=== PATIENT | female | born 1940 | race Caucasian/White ===

== ENCOUNTER 2019-03-28 08:13 | Inpatient (IN) | payer MEDICARE, OTHER ==
[~2019-03-28] VITALS: Ht 167.6 cm; Wt 112.2 kg
[~2019-03-28 08:13] MED LIST: ASPIRIN ADULT L81 MG; FLEXERIL OR; MOTRIN800 MG/TAB PO; PRAVACHOL10 MG OR; PRINIVIL5 MG OR; SYNTHROID OR; ULTRAM50 M1 OR
--- NOTE | 2019-03-28 08:40 | NUR ---
PATIENT TO ROOM VIA WHEELCHAIR, REPORTS PAIN 10/10 WHEN MOVING OR WEIGHT APPLIED TO LEFT ANKLE. AT BEDSIDE.
--- NOTE | 2019-03-28 08:59 | NUR ---
PATIENT TO ROOM 15 FOR HIGHER LEVEL OF CARE. REPORT GIVEN TO ANA LILIA FERMIN.
[2019-03-28 09:17] LABS: HEMATOCRIT 40.5 % (37.0-47.0); HEMOGLOBIN 12.9 g/dl (12.0-16.0); IMMATURE GRANULOCYTES 0.4 % (0.0-5.0); MEAN CORPUSCULAR HGB 26.8 pG CALC (26.0-32.0); MEAN CORPUSCULAR HGB CONC 31.9 g/L CALC (32.0-36.0); NEUT# 6.72 thou/uL (2.00-7.15); RED BLOOD COUNT 4.82 mill/uL (4.20-5.60); RED CELL DISTRI WIDTH 14.2 % (11.5-15.5)
[2019-03-28] MEDS ORDERED: LEVOTHYROXIN100 MC1 PO (09:25)
[2019-03-28] MEDS ORDERED: OMEPRAZOLE DR20 MG PO (09:26)
[2019-03-28] MEDS ORDERED: LOVASTATIN10 M1 PO (09:26)
[2019-03-28 09:30] LABS: ANION GAP 11 (6-22 (CALC)); BUN 21 mg/dL (8-23); BUN/CREATININE RATIO 27 (12-20 (CALC)); CARBON DIOXIDE 29 mmol/l (22-30); CHLORIDE 99 mmol/l (95-108); CREATININE 0.8 mg/dL (0.5-1.0); GFR > 60 ML/MIN (>=60 (CALC)); GFR FOR AFR.AMER. > 60 ML/MIN (>=60 (CALC)); POTASSIUM 3.8 mmol/l (3.5-5.1); SODIUM 135 mmol/l (137-146)
--- NOTE | 2019-03-28 09:40 | NUR ---
PT RESTING ON STRETCHER NO OBVIOUS S/S OF DSITRESS NOTED; REDNESS AND WARMTH NOTED TO LLE, MARKED WITH SKIN MARKER; PT STATES PAIN IS 10 OUT OF 10 WHEN STANDING; IV ANTIBIOTICS INFUSING AT THIS TIME; VSS; WILL CONTINUE TO MONITOR
--- NOTE | 2019-03-28 10:40 | NUR ---
PT RESTING ON STRETCHER; NO S/S OF DISTRESS NOTED; VSS; IV ANTIBIOTICS INFUSING; PT DENIES ANY NEEDS AT THIS TIME; CALL LIGHT WITHIN REACH; WILL CONTINUE TO MONITOR
--- NOTE | 2019-03-28 11:17 | NUR ---
PT RESTING ON STRETCHER; NO S/S OF DISTRESS NOTED; PT DENIES ANY NEEDS; CALL LIGHT WITHIN REACH; WILL CONTINUE TO MONITOR
--- NOTE | 2019-03-28 12:10 | NUR ---
PT UPDATED ON POC; VSS; WILL CONTINUE TO MONITOR
[2019-03-28] MEDS ORDERED: TIZANIDINE HCL2 MG PO (12:17)
[2019-03-28] MEDS ORDERED: ZESTRIL30 MG PO (12:17)
--- NOTE | 2019-03-28 12:20 | NUR ---
REPORT RECEIVED FROM Iman KIM RN.
--- NOTE | 2019-03-28 12:30 | NUR ---
Admission Note Report Given to: DAXA HUDDLESTON Transported by: Wheelchair X Stretcher Transported with: X Nurse Transporter X Patent IV O2 Recovery Manager
--- NOTE | 2019-03-28 12:40 | NUR ---
PT ARRIVED TO FLOOR AT 1230 VIA STRETCHER WITH JONO SUNG AND . PT AMBULATED TO THE BED. A&O X3. COMPLAINS OF SLIGHT TENDERNESS TO LT LEG. LT LEG WARM TO THE TOUCH. SEE CHART FOR PICTURE. VANCOMYCIN FROM THE ER IS BEING COMPLETED AT THIS TIME. ASSESSMENT COMPLETED AT THIS TIME. NO FURTHER NEEDS FROM THE PT AT THIS TIME. CALL LIGHT IN REACH. CONTINUE TO MONITOR.
--- NOTE | 2019-03-28 15:16 | NUR ---
IV LASIX GIVEN TO PT. PT TOLERATED WELL. INSTRUCTED THE PT IF SHE HAD TO GO TO THE BATHROOM TO CALL FOR ASSISTANCE.
[2019-03-28 16:15] VITALS: BP 156/77
[2019-03-28 18:50] VITALS: BP 108/70
--- NOTE | 2019-03-28 20:00 | NUR ---
PT SITTING UP IN BED, PT AT BEDSIDE. PT ALERT AND ORIENTED X 4. PT CURRENTLY BEING TREATED FOR LEFT LEG CELLUITIS, PT HAS REDNESS, SWELLING, WARMTH AND PAIN UPON TOUCH FROM LEFT KNEE EXTENDING DOWN TO LEFT FOOT. PT USES WALKER. PT INSTUCTED TO USE CALL WHITE FOR ASSISTANCE, PT UP TOLIET WITH NURSE ASSISTANCE. PEDAL PULSE +2 TO LEFT FOOT.
--- NOTE | 2019-03-29 | NUR ---
PT UP IN ROOM WATCHING T.V. PT HAS NO COMPLAINTS. PT LEFT LEG ELEVATED ON PILLOW.
[2019-03-29 04:43] VITALS: BP 106/73
[2019-03-29 05:24] LABS: ANION GAP 13 (6-22 (CALC)); BUN 23 mg/dL (8-23); BUN/CREATININE RATIO 32 (12-20 (CALC)); CARBON DIOXIDE 27 mmol/l (22-30); CHLORIDE 101 mmol/l (95-108); CREATININE 0.7 mg/dL (0.5-1.0); GFR > 60 ML/MIN (>=60 (CALC)); GFR FOR AFR.AMER. > 60 ML/MIN (>=60 (CALC)); POTASSIUM 3.4 mmol/l (3.5-5.1); SODIUM 138 mmol/l (137-146)
[2019-03-29 07:20] VITALS: BP 98/58
--- NOTE | 2019-03-29 07:20 | NUR ---
RESTING IN RECLINER WITH LEGS ELEVATED. RESP NO-LABORED. BREATH SOUNDS CLEAR TRHOUGHOUT. LEFT LEG FROM KNEE TO TOES, RED, EDEMATOUS AND WARM TO TOUCH WITH RED RAISED RASH NOTED. PERIPHERAL PULSES PALPABLE. SALINE LOCK INTACT IN RAC, SITE BENIGN. DISCUSSED PLAN OF CARE. DENIES NEEDS AT THIS TIME. CALL WHITE IN REACH.
--- NOTE | 2019-03-29 09:00 | NUR ---
E VICKIE/ANGY IN TO SEE PATIENT.
--- NOTE | 2019-03-29 11:23 | NUR ---
S: SCOTTIE EWING is a 78 F who presents with Cellulitis. She has a history of HTN, hypothyroidism. All medications in patient's chart were reviewed. O: VS: BP: 98/58 mmHg, P: 91 beats/min, RR: 18 breaths/min, T: 98.8 F W: 109 kg, HT: 66 in, Scr: 0.7 mg/dL, CrCl: 58 ml/min A: Blood culture is pending. P: Patient is on UNASYN 3 gm IV q6h. Vancomycin ordered for pharmacy to dose. Start Vancomycin 1000 mg IV Q12H. Vancomycin trough is drawn before the 4th dose on 03/31/19 at 0000. Vancomycin goal trough is between 10-15 mcg/ml. Pharmacy will follow and or advise on antibiotics use as needed.
--- NOTE | 2019-03-29 11:45 | NUR ---
PATIENT REMAINS UP IN RECLINER WITH LEGS ELEVATED. IN TO VISIT.
--- NOTE | 2019-03-29 15:50 | NUR ---
PATIENT RESTING WITHOUT COMPLAINTS. NO CHANGES TO LLE-CONTINUES WITH REDNESS, TENDERNESS AND SWELLING, WITH RED RAISED RASH. NO INCREASE FROM PREVIOUS MARKINGS OF LEADING EDGE.
[2019-03-29 17:21] VITALS: BP 133/58
[2019-03-29 17:58] LABS: URINE BILIRUBIN - DIPSTICK NEGATIVE (NEGATIVE); URINE BLOOD DIPSTICK SMALL (NEGATIVE); URINE COLOR YELLOW; URINE GLUCOSE - DIPSTICK NEGATIVE (NEGATIVE); URINE KETONE NEGATIVE (NEGATIVE); URINE LEUK ESTERASE NEGATIVE (NEGATIVE); URINE NITRITE - DIPSTICK NEGATIVE (Negative); URINE PROTEIN - DIPSTICK NEGATIVE (NEG-TRACE); URINE SPECIFIC GRAVITY >=1.030; URINE UROBILINOGEN - DIPSTICK 0.2 E.U./dL (0.2)
[2019-03-29 18:09] LABS: URINE AMORPH SEDIMENT MANY hpf (NONE-FEW); URINE CALCIUM OXALATE CRYSTALS FEW lpf; URINE SQUAMOUS EPITHELIAL CELL FEW EPI/hpf (0-FEW); URINE WBC 0-2 WBC/hpf (0-5)
[2019-03-29 19:00] VITALS: BP 119/81
--- NOTE | 2019-03-29 19:30 | NUR ---
PATIENT SITTING UP IN RECLINER WITH BLE ELEVATED. LLE IS RED, SWOLLEN, HOT TO TOUCH AND PAINFUL. PULES PALPABLE. SALINE LOCK INTACT TO LEFT HAND-APPEARS HEALTHY AT THIS ITME. SAFETY PRECAUTIONS REINFORCED. CALL LIGHT IN REACH. WILL CONT TO MONITOR.
--- NOTE | 2019-03-30 00:19 | NUR ---
PATIENTSITTING UP IN RECLINER WITH LLE ELVATED ON PILLOW. PATIENBT MEDICATED FOR 10/10 PAIN TO LLE WITH PERCOCET 5/325MG PO FOR PAIN. IV UNASYN HUNG AND INFUSING VIA LEFT HAND IV SITE. SITE REMAINS HEALTHY AT THIS TIME. CALL LIGHT IN REACH. WILL CONT TO MONITOR.
--- NOTE | 2019-03-30 02:48 | NUR ---
PATIENT ASSISTED TO THE BR TO VOID AND THEN ASSISTED INTO BED. LLE ELEVATED ON PILLOW. SALINE LOCK TO LEFT HAND FLUSHED AFTER VANCO COMPLETED. SAFETY PRECAUTIONS REINFORCED. CALL LIGHT IN REACH, WILL CONT TO [id number].
[2019-03-30 02:54] VITALS: BP 100/59
[2019-03-30 04:54] LABS: HEMATOCRIT 40.7 % (37.0-47.0); HEMOGLOBIN 12.7 g/dl (12.0-16.0); IMMATURE GRANULOCYTES 0.5 % (0.0-5.0); MEAN CELL VOLUME 85.1 fL CALC (80.0-100.0); MEAN CORPUSCULAR HGB 26.6 pG CALC (26.0-32.0); MEAN CORPUSCULAR HGB CONC 31.2 g/L CALC (32.0-36.0); NEUT# 7.06 thou/uL (2.00-7.15); RED BLOOD COUNT 4.78 mill/uL (4.20-5.60); RED CELL DISTRI WIDTH 14.3 % (11.5-15.5)
[2019-03-30 05:11] LABS: ANION GAP 13 (6-22 (CALC)); BUN 27 mg/dL (8-23); BUN/CREATININE RATIO 31 (12-20 (CALC)); CARBON DIOXIDE 27 mmol/l (22-30); CHLORIDE 102 mmol/l (95-108); CREATININE 0.9 mg/dL (0.5-1.0); GFR > 60 ML/MIN (>=60 (CALC)); GFR FOR AFR.AMER. > 60 ML/MIN (>=60 (CALC)); MAGNESIUM 1.9 mg/dL (1.6-2.3); POTASSIUM 3.6 mmol/l (3.5-5.1); SODIUM 139 mmol/l (137-146)
[2019-03-30 07:10] VITALS: BP 129/81
--- NOTE | 2019-03-30 07:10 | NUR ---
AWAKE ON ROUNDS. RESP NON-LABORED. LUNGS CLEAR THROUGHOUT. ABD SOFT WITH BOWEL SOUNDS. PATIENT C/O CONSTIPATION. LLE RED, WARM AND PAINFUL FOR PATIENT. PATIENT RATES PAIN A 9/10. WILL MEDICATE FOR PAIN ORDERED. SALINE LOCK IN LH, SITE BENIGN. DISCUSSED PLAN OF CARE, PATIENT VERBALIZES UNDERSTANDING OF TEACHING. CALL WHITE IN REACH.
--- NOTE | 2019-03-30 10:05 | NUR ---
MOM GIVEN FOR C/O CONSTIPATION ORDERED.
--- NOTE | 2019-03-30 10:55 | NUR ---
I ENTERED ALL THE INFORMATION NEEDED FOR THE CONSULTATION ORDERED. I AM JUST NOW WAITING FOR A VERIFICATION FROM THE PHYSICIAN. ENTERED @10:54AM.
--- NOTE | 2019-03-30 11:45 | NUR ---
RESTING IN BED. VISITING. SALINE LOCK FLUSHED AND PATENT. IV ANTIBIOTICS INFUSING.
--- NOTE | 2019-03-30 15:38 | NUR ---
SITTING UP IN RECLINER. STATES HAS HAD A BM. STATES HAS HEMORRHOIDS FROM CONSTIPATION. INFORMED E VICKIE/ANGY OF PATIENT REQUEST FOR HEORRHOID CREAM.
--- NOTE | 2019-03-30 17:55 | NUR ---
DR. MUÑIZ CALLED FOR THE CONSULTATION @ [id number]. SPOKE WITH THE PT AND ANA LILIA HESTER.
--- NOTE | 2019-03-30 18:00 | NUR ---
TELEMEDICINE CONSULT WITH DR MUÑIZ ID. DR MUÑIZ DISCUSSED CASE WITH PATIENT AND SPOUSE.
--- NOTE | 2019-03-30 18:10 | NUR ---
LEFT LEG WRAPPED IN RAVINDER WRAPS FOR COMPRESSION AND LEG ELEVATED ON 2 PILLOWS.
[2019-03-30 19:12] VITALS: BP 129/84
--- NOTE | 2019-03-30 19:43 | NUR ---
PATIENT RESTING IN BED AT THIS TIME-AWAKE ALERT AND ORIENTEDX3. BLE ELEVATED AND RAVINDER WRAP TO LLE INTACT. PATIENT WITH C/O LLE PAIN-8/10 ON PAIN SCALE AND MEDICATED WITH PERCOCET 5/325MG PO GIVEN. PATIENT WITH SALINE LOCK TO LEFT HAND. SAFETY PRECAUTIONS REINFORCED. CALL LIGHT IN REACH. WILL CONT TO MONITOR.
--- NOTE | 2019-03-30 21:53 | NUR ---
PATIENT RESTING IN BED WATCHING TV AT THIS ITME. AWAKE ALERT ANDORIENTEDX3. PATIENT WITH BLE ELEVATED ON PILLOWS. LLE WITH RAVINDER WRAP INTACT. CMS TO LEFT TOES WNL. FLAGYL INFUSING ORDERED VIA LEFT HAND IV SITE-SITE REMAINS HEALTHY AT THIS TIME. SAFETY PRECAUTIONS REINFORCED. CALL LIGHT IN REACH. WILL CONT TO MONITOR.
--- NOTE | 2019-03-31 | NUR ---
PATIENT RESTING IN BED WITH FEET ELEVATED. RAVINDER WRAP REMAINS IN PLACE TO LLE. VANCO TROUGH-9. VANCO HUNG AND INFUSING VIA LEFT HAND IV SITE ORDERED. CALL LIGHT IN REACH. WILL CONT TO MONITOR.
[2019-03-31 03:30] VITALS: BP 135/89
--- NOTE | 2019-03-31 05:00 | NUR ---
PATIENT APPEARS SLEEPING AT THIS TIME WITH EYES CLOSED. RESP ARE EVEN AND UNLABORED. CALL LIGHT IN REACH. WILL CONT TO MONITOR.
[2019-03-31 05:38] LABS: HEMATOCRIT 39.4 % (37.0-47.0); HEMOGLOBIN 12.2 g/dl (12.0-16.0); IMMATURE GRANULOCYTES 1.1 % (0.0-5.0); MEAN CELL VOLUME 85.5 fL CALC (80.0-100.0); MEAN CORPUSCULAR HGB 26.5 pG CALC (26.0-32.0); NEUT# 5.99 thou/uL (2.00-7.15); RED BLOOD COUNT 4.61 mill/uL (4.20-5.60); RED CELL DISTRI WIDTH 14.2 % (11.5-15.5)
[2019-03-31 05:53] LABS: ANION GAP 10 (6-22 (CALC)); BUN 23 mg/dL (8-23); BUN/CREATININE RATIO 34 (12-20 (CALC)); CARBON DIOXIDE 29 mmol/l (22-30); CHLORIDE 102 mmol/l (95-108); CREATININE 0.7 mg/dL (0.5-1.0); GFR > 60 ML/MIN (>=60 (CALC)); GFR FOR AFR.AMER. > 60 ML/MIN (>=60 (CALC)); POTASSIUM 3.9 mmol/l (3.5-5.1); SODIUM 137 mmol/l (137-146)
[2019-03-31 08:00] VITALS: BP 139/83
--- NOTE | 2019-03-31 08:00 | NUR ---
PT IS AWAKE, ALERT, ORIENTED X 3. LUNGS CLEAR, RA. PT WITH RAVINDER DRESSING TO LEFT LEG. NO COMPLAINTS.
--- NOTE | 2019-03-31 11:23 | NUR ---
S: SCOTTIE EWING is a 78 F who presents with CELLULITIS OF LEFT LOWER EXTREMITY. She has a history of HTN, HYPOTHYROIDISM. All medications in patient's chart were reviewed. O: VS: BP 139/83, P 83, RR 20,T 98.3 W 109.004 kg, HT 66 IN, Scr=,CrCl= 58 ml/min Vanco Trough: 9 ug/mL A: Blood culture is pending. P: Patient is on Clindamycin 900 mg IV q8h and Vancomycin 1 gm IV q12h. Vancomycin ordered for pharmacy to dose. Increase Vancomycin dose to 1250 mg IV Q12H. Vancomycin trough is drawn before the 4th dose on 04/01 at 23:30. Vancomycin goal trough is between 10-15 mcg/ml. Pharmacy will follow and or advise on antibiotics use as needed.
--- NOTE | 2019-03-31 12:00 | NUR ---
PT MEDICATED FOR THROBBING LEFT LEG PAIN. PT OOB IN CHAIR FOR MEALS, AMBULATORY IN ROOM WITHOUT ASSIST.
[2019-03-31 15:45] VITALS: BP 105/63
--- NOTE | 2019-03-31 16:00 | NUR ---
PT CONTINUES BEFORE, NO COMPLAINT OF PAIN OR OTHERWISE. PT SEEN EARLIER BY DR ANGULO AND WAS CONSULTED WITH DR MUÑIZ FROM TELEMEDICINE.
[2019-03-31 19:03] VITALS: BP 126/76
--- NOTE | 2019-03-31 21:06 | NUR ---
PATIENT RESTING IN BED WATCHING TV AT THIS TIME WITH VISITING AT BEDSIDE. PATIENT IS AWAKE ALERT AND ORIENTEDX3. RAVINDER WRAP TO LLE IS INTACT. CMS TO LEFT TOES WNL. BLE ELEVATED ON PILLOWS. SALINE LOCK TO LEFT HAND INTACT AND APPEARS H EALTHY AT THIS ITME. SAFETY PRECAUTIOS REINFORCED. CALL LIGHT IN REACH. WILL CONT TO MONITOR.
--- NOTE | 2019-03-31 22:37 | NUR ---
PATIENT RESTING IN BED. IV SITE TO LEFT HAND IS RED AND PAINFUL-SITE D/C'ED WITH CATH INTACT. NEW IV SITE TO LEFT HAND STARTED-#22 GAUGE WITH GOOD BLOOD RETURN. IV CLEOCIN HUNG ORDERED. PATIENT WITH LLE ELEVATED-SWELLING APPEARS TO BE LESS TONIGHT. CMS TO LEFT TOES WNL. RAVINDER WRAP INTACT ORDERED. PATIENT STATES THAT SHE DID HAVE ANOTHER BM TONIGHT.NO DIFFICULTY WITH URINATION. SAFETY PRECAUTIONS REINFORCED. CALL LIGHT IN REACH. WILL CONT TO MONITOR.
[2019-04-01 03:44] VITALS: BP 149/94
--- NOTE | 2019-04-01 04:07 | NUR ---
PATIENT RESTING IN BED AT THIS TIME-APPEARS SLEEPING AT THIS TIME. RESP EVEN AND UNLABORED. LLE ELEVATED ON PILLOWS . RAVINDER WRAP IN PLACE. CALL LIGHT IN REACH. WILL CONT TO MONITOR.
[2019-04-01 05:33] LABS: HEMATOCRIT 39.2 % (37.0-47.0); HEMOGLOBIN 12.4 g/dl (12.0-16.0); MEAN CELL VOLUME 84.5 fL CALC (80.0-100.0); MEAN CORPUSCULAR HGB 26.7 pG CALC (26.0-32.0); MEAN CORPUSCULAR HGB CONC 31.6 g/L CALC (32.0-36.0); RED BLOOD COUNT 4.64 mill/uL (4.20-5.60); RED CELL DISTRI WIDTH 14.1 % (11.5-15.5)
--- NOTE | 2019-04-01 06:30 | NUR ---
PATIENT RESTING IN BED-IV CLEOCIN FINISHED AND LEFT HAND SALINE LOCK FLUSHED. SITE REMAINS HEALTHY. PATIENT MEDICATED FOR LEFT ANKLE AND LEFT LEG PAIN WITH PERCOCET FOR PAIN. CALL LIGHT IN REACH. WILL CONT TO MONITOR.
[2019-04-01 07:34] VITALS: BP 130/74
--- NOTE | 2019-04-01 08:00 | NUR ---
PT SEEN AWAKE, ALERT, OOB IN CHAIR. LEGS ARE ELEVATED ON TWO PILLOWS. REDNESS SEEN TO HAVE RECEDED SEVERAL INCHES ABOVE KNEE. PT AMBULATORY IN ROOM WITH WALKER. PT FEARS GOING HOME TO SMALLER AREA, WONDERS IF SHE WILL DO WELL THERE. ARRIVES TO BEDSIDE.
--- NOTE | 2019-04-01 12:00 | NUR ---
PT SEEN BY DR ANGULO THIS MORNING, WILL STAY ANOTHER DAY FOR ANTIBIOTIC THERAPY. PT IN NO DISTRESS, AMBULATORY IN ROOM. AT BEDSIDE.
--- NOTE | 2019-04-01 12:58 | NUR ---
Pt. found resting in recliner this morning, physical therapy treatment plan explained of which pt. agreed to participate in. While sitting in recliner the pt. was instructed on and performed AROM L ankle PF,DF,INVERSION and EVERSION motions 2 x 10 repetitions. LE's then lowered and pt. performed sit to stand with min. A to RW and ambulated x 25 feet to bathroom and x 15 feet back to recliner with verbal cues for safety awareness and CGA. Pt. left resting in recliner without questions/concerns. Call light left within reach. AMPAC score unchanged.
[2019-04-01 15:23] VITALS: BP 128/90
--- NOTE | 2019-04-01 16:00 | NUR ---
PT RECEIVES ANTIBIOTICS DIRECTED, AWARE THAT SHE WILL BE HERE UNTIL TOMORROW. NO DISTRESS, NO COMPLAINTS.
--- NOTE | 2019-04-01 19:20 | NUR ---
PT RESTING IN BED WATCHING TV WITH AT BEDSIDE. A&O X3. STATES A LITTLE BIT OF DISCOMFORT/PAIN AROUND HER ANKLE. LEG KEPT ELEVATED.ASSESSMENT COMPLETED. NO OTHER NEEDS AT THIS TIME. CALL LIGHT IN REACH. CONTINUE TO MONITOR.
[2019-04-01 20:07] VITALS: BP 146/88
--- NOTE | 2019-04-01 21:45 | NUR ---
PT C/O BURNING PAIN TO L ANKLE. LOOSENED RAVINDER WRAP AND RESECURED. PT NOT DUE FOR PAIN MEDICATION. ICE PACK PROVIDED, PT STATES RELIEF. LLE ELEVATED ON PILLOWS. CALL LIGHT IN REACH,CONTINUE TO MONITOR.
--- NOTE | 2019-04-02 | NUR ---
PT RESTING IN BED. CALL LIGHT IN REACH. CONTINUE TO MONITOR.
[2019-04-02 04:01] VITALS: BP 150/79
--- NOTE | 2019-04-02 04:04 | NUR ---
PT SLEEPING IN BED. NO SIGNS OF RESPIRATORY DISTRESS. CALL LIGHT IN REACH. CALL LIGHT IN REACH. CONTINUE TO MONITOR.
--- NOTE | 2019-04-02 06:15 | NUR ---
PT RESTING IN RECLINER WATCHING TV. NO NEEDS AT THIS TIME. CALL LIGHT IN REACH CONTINUE TO MONITOR.
[2019-04-02 08:08] VITALS: BP 145/97
--- NOTE | 2019-04-02 08:40 | NUR ---
ASSESSMENT IS COMPLETED: IV SITE IS FREE FROM REDNESS OR EDEMA. HR IS REG, PULSES ARE STRONG X4, ABD IS SOFT WITH ACTIVE BS. BREATH SOUNDS ARE CLEAR BILATERALLY. CONTINUE TO OBSERVE AND MONITOR.
[2019-04-02 09:06] VITALS: BP 145/97
--- NOTE | 2019-04-02 10:56 | NUR ---
PATIENT PERFORMED GAIT TRAINING USING 2WW, 30 FEET X 2, SBA FOR SAFETY. PATIENT PRESENTS ANTALGIC GAIT AND REFUSED TO AMBULATE FURTHER SHE FEELS SHE IS NOT READY TO DO IT. PATIENT PERFORMED STS FROM CHAIR AND TOILET, SUPERVISION WITH GOOD SEQUENCING AND SAFETY AWARENESS. AMPAC = 15
--- NOTE | 2019-04-02 12:00 | NUR ---
PT HAS BEEN SITTING IN THE CHAIR, NO DISTRESS NOTED. IV SITE IS FREE FROM REDNESS OR EDEMA. CONTINUE TO OSBERVE AND MONITOR.
--- NOTE | 2019-04-02 12:23 | NUR ---
DR MUÑIZ ON TELE CONFERENCE , SPOKE WITH PT AND OBSERVED THE LEFT LEG. WITH SWELLING GOING DOWN AND ROOM TEMPERATURE. TO TOUCH. RECOMMENDED THAT PT CAN GO HOME WITH ORAL ANTIBIOTICS.
[2019-04-02] MEDS ORDERED: PERCOCET 5/325M1 TAB PO (13:18)
[2019-04-02] MEDS ORDERED: KEFLEX750 M1 PO (14:49)
--- NOTE | 2019-04-02 15:05 | NUR ---
IV SITE DISCONTINEUD WITH CATHETER INTACT. NO REDNESS OR EDEMA. DISCHARGE INSTRUCTIONS GIVEN AND VERBALIZED UNDERSTANDING. Discharge instructions given. Patient verbalizes understanding of same. Discharged in stable condition via Wheelchair to Home with family. All belongings sent with pt.
== END 2019-04-02 15:15 | DRG 603 ==
LOC: ED 08:13 → ED-I 10:17 → ED 10:31 → MS2 10:33
PROVIDERS: Family Medicine; Nurse Practitioner Family; ADMIT Internal Medicine; ATTEND Internal Medicine
DX: L03.116 Cellulitis of left lower limb (principal); S93.402A Sprain of unspecified ligament of left ankle, initial encounter; E87.6 Hypokalemia; I10 Essential (primary) hypertension; E03.9 Hypothyroidism, unspecified; E78.5 Hyperlipidemia, unspecified; L84 Corns and callosities; B95.4 Other streptococcus as the cause of diseases classified elsewhere; X58.XXXA Exposure to other specified factors, initial encounter
CPT/HCPCS: G0378; J0692; J1650; J3370; Q3014

== ENCOUNTER 2022-04-18 06:57 | Emergency (ER) | payer MEDICARE, OTHER ==
[~2022-04-18] VITALS: Ht 167.6 cm; Wt 90.9 kg
[~2022-04-18 06:57] MED LIST changes: +KEFLEX750 M1 PO; +LEVOTHYROXIN100 MC1 PO; +LOVASTATIN10 M1 PO; +OMEPRAZOLE DR20 MG PO; +PERCOCET 5/325M1 TAB PO; +TIZANIDINE HCL2 MG PO; +ZESTRIL30 MG PO
[2022-04-18 07:06] VITALS: BP 137/89
[2022-04-18 07:17] VITALS: BP 107/74
[2022-04-18 07:31] VITALS: BP 107/70
[2022-04-18 07:38] LABS: BASO% 0.5 % (0-3); EOS% 2.7 % (0-8); HEMATOCRIT 41.6 % (37.0-47.0); HEMOGLOBIN 13.6 g/dl (12.0-16.0); LYMPH% 20.4 % (15-41); MEAN CELL VOLUME 89.7 fL CALC (80.0-100.0); MEAN CORPUSCULAR HGB 29.3 pG CALC (26.0-32.0); MEAN CORPUSCULAR HGB CONC 32.7 g/dL CAL (32.0-36.0); MONO% 8.2 % (2-13); NEUT# 3.74 thou/uL (2.00-7.15); NEUT% 68.2 % (42-76); RED BLOOD COUNT 4.64 mill/uL (4.20-5.60); RED CELL DISTRI WIDTH 13.1 % (11.5-15.5)
[2022-04-18 07:49] LABS: ALBUMIN 4.2 g/dL (3.2-5.0); ALKALINE PHOSPHATASE 85 u/l (38-126); ANION GAP 12 (6-22 (CALC)); BILIRUBIN, TOTAL 0.8 mg/dL (0.0-1.4); BUN 12 mg/dL (8-23); BUN/CREATININE RATIO 14 (12-20 (CALC)); CARBON DIOXIDE 30 mmol/l (22-30); CHLORIDE 104 mmol/l (95-108); CREATININE 0.9 mg/dL (0.5-1.0); GFR FOR AFR.AMER. > 60 ML/MIN (>=60 (CALC)); GFR OTHER RACES 60 ML/MIN (>=60 (CALC)); POTASSIUM 3.9 mmol/l (3.5-5.1); SGOT/AST 36 u/l (9-36); SODIUM 142 mmol/l (137-146); TOTAL PROTEIN 6.9 g/dL (6.3-8.2)
[2022-04-18 07:59] LABS: CPK 40 u/l (30-165)
[2022-04-18 08:45] VITALS: BP 137/85
== END 2022-04-18 09:00 | disposition home or self-care (01) ==
LOC: ED 06:57
PROVIDERS: Internal Medicine
DX: R60.9 Edema, unspecified (principal); I10 Essential (primary) hypertension